=== PATIENT | female | born 1985 | race Caucasian/White ===

== ENCOUNTER 2017-05-08 18:26 | Emergency (ER) | payer OTHER ==
[2017-05-08 18:31] VITALS: BP 129/77
[2017-05-08] MEDS ORDERED: BUFFERED LIDOCAINE 10 ML SYRINGE SUBQ STA (18:59)
[2017-05-08] MEDS ORDERED: SULFAMETH/TRIMETH DS 800/160 MG TABLET PO STA (19:00)
--- NOTE | 2017-05-08 19:01 | ED Physician Documentation ---
PD HPI SKIN - Stated complaint Stated Complaint: L ARM SWELLING - Chief complaint Chief Complaint: Wound - History obtained from History obtained from: Patient - History of Present Illness Timing - onset: Other (Painful lumps in both axilla, left greater than right for the last few days, no fevers or possibility of . She has never had this before.) Review of Systems Constitutional: reports: Reviewed and negative Nose: reports: Reviewed and negative Cardiac: reports: Reviewed and negative Respiratory: reports: Reviewed and negative PD PAST MEDICAL HISTORY - Past Medical History Past Medical History: No Cardiovascular: None Respiratory: None Neuro: None Endocrine/Autoimmune: None GI: None VEHICLE SERVICE ATTENDANT: None : None HEENT: None Psych: None Musculoskeletal: Chronic back pain - Past Surgical History Past Surgical History: Yes HEENT: Myringotomy (tubes), Tonsil/Adenoidectomy - Present Medications Home Medications: Ambulatory Orders Medication Instructions Recorded Confirmed Iron,Carbonyl/Vit C/Fos [Chewable 1 each PO 05/08/17 Iron 30 mg Tablet] Magnesium Oxide [Magnesium] mg PO DAILY 05/08/17 Sulfamethoxazole/Trimethoprim 1 each PO BID 7 Days tablet 05/08/17 [Sulfamethoxazole-Tmp Ds Tablet] - Allergies Allergies/Adverse Reactions: Allergies Allergy/AdvReac Type Severity Reaction Status Date / Time tramadol Allergy Headache Verified 05/08/17 18:31 - Social History Does the pt smoke?: No Smoking Status: Never smoker Does the pt drink ETOH?: No Does the pt have substance abuse?: No - Immunizations Immunizations are current?: Yes PD ED PE NORMAL - Vitals Vital signs reviewed: Yes - General General: Alert and oriented X 3, No acute distress - Extremities Extremities: Other (There is a tiny lump, maybe a couple millimeters in the right axilla that does not need drainage, there is a larger abscess in the left axilla that does require incision and drainage.) - Neuro Neuro: Alert and oriented X 3, Normal speech - Psych Psych: Normal mood, Normal affect Results - Vitals Vitals: Vital Signs - 24 hr 05/08/17 18:29 Temperature 37.3 C Heart Rate 100 Respiratory 16 Rate Blood Pressure 129/77 O2 Saturation 100 Oxygen O2 Source Room air Procedures - Abscess I&D (location) L axilla Preparation: Betadine, Lidocaine 1% Incision: Incised with scalpel, Purulent drainage, Loculations broken, Culture obtained. No: Packed Other: Pt tolerated well, Dressing applied, Antibiotic prescribed Departure - Departure Disposition: 01 Home, Self Care Clinical Impression: Abscess of left axilla Condition: Good Record reviewed to determine appropriate education?: Yes Instructions: ED Abscess IandD Prescriptions: Sulfamethoxazole/Trimethoprim [Sulfamethoxazole-Tmp Ds Tablet] 1 each PO BID 7 Days tablet Comments: We are performing a wound culture, the results should be done in 48-72 hours. If antibiotic change is necessary we will call you. Return if worse in the meantime, especially if you develop increased pain, fevers, cannot keep down the medication. Otherwise follow-up with your physician in approximately 2-3 days. Discharge Date/Time: 05/08/17 19:21
== END 2017-05-08 19:21 | disposition home or self-care (01) ==
LOC: ED 18:26
DX: L02.412 Cutaneous abscess of left axilla (principal)
CPT/HCPCS: 10060; 87070; 87181; 87205; 99281; 99283; A9270